=== PATIENT | female | born 1935 | race Caucasian/White ===

== ENCOUNTER → 2016-11-06 | Outpatient (CLI) | payer BC ==
[~2016-11-06] MED LIST: ASPIRIN E.C. 8181 MG PO; BENICAR 20MG TA20 MG PO; CLARITIN-D 10 M1 T24 PO; FISH OIL1000 MG PO; KOMBIGLYZE XR 11 TE1 PO; LEVOTHYROXINE0.05 MG PO; LEVOXYL0.088 MG PO; LIPITOR 10MG10 MG PO; LISINOPRIL PO; LUTEIN 15 MG-0.1 SGL PO; LUTEIN PO; METFORMIN500 MG PO
== END ==
LOC: SUN.DIA 10:19
DX: E11.9 Type 2 diabetes mellitus without complications (principal); I10 Essential (primary) hypertension; E03.9 Hypothyroidism, unspecified; E66.9 Obesity, unspecified; Z68.30 Body mass index [BMI] 30.0-30.9, adult; Z71.3 Dietary counseling and surveillance
CPT/HCPCS: G0108

== ENCOUNTER → 2016-12-29 | Outpatient (CLI) | payer BC, MEDICARE | LOC: MC.RAD 10:47 | DX: Z12.31 Encounter for screening mammogram for malignant neoplasm of breast (principal) ==

== ENCOUNTER → 2018-01-14 | Outpatient (CLI) | payer BC, MEDICARE | LOC: MC.RAD 10:30 | DX: Z12.31 Encounter for screening mammogram for malignant neoplasm of breast (principal) ==

== ENCOUNTER → 2019-02-16 | Outpatient (CLI) | payer BC | LOC: MC.RAD 09:12 | DX: Z12.31 Encounter for screening mammogram for malignant neoplasm of breast (principal) ==

== ENCOUNTER → 2020-03-21 | Outpatient (CLI) | payer BC | LOC: MC.RAD 10:33 | DX: Z12.31 Encounter for screening mammogram for malignant neoplasm of breast (principal) ==